=== PATIENT | female | born 1990 | race Two or more races ===

== ENCOUNTER 2019-01-21 15:07 | Emergency (ER) | payer OTHER ==
[2019-01-21 15:17] VITALS: BP 107/57; PULSE 88; TEMP 98; BMI 21.1
--- NOTE | 2019-01-21 15:24 | PDOC ---
History of Present Illness - General Chief Complaint: Bone Injury Stated Complaint: DISPLACED FX OF LT RING FINGER Time Seen by Provider: 01/21/19 15:22 History Source: Patient Exam Limitations: No Limitations Past History - Travel Traveled outside of the country in the last 30 days: No Close contact w/someone who was outside of country & ill: No - Past Medical History Allergies/Adverse Reactions: Allergies Allergy/AdvReac Type Severity Reaction Status Date / Time No Known Allergies Allergy Verified 01/21/19 15:17 Home Medications: Ambulatory Orders NK [No Known Home Medication] 01/21/19 COPD: No - Suicide/Smoking/Psychosocial Hx Smoking History: Never smoked Have you smoked in the past 12 months: No Information on smoking cessation initiated: No Hx Alcohol Use: No Drug/Substance Use Hx: No Review of Systems - Review of Systems Able to Perform ROS?: Yes Comments:: 01/21/19 15:30 CONSTITUTIONAL: Absent: fever, chills, diaphoresis, generalized weakness, malaise, loss of appetite HEENT: Absent: rhinorrhea, nasal congestion, throat pain, throat swelling, difficulty swallowing, mouth swelling, ear pain, eye pain, visual Changes CARDIOVASCULAR: Absent: chest pain, loss of consciousness, palpitations, irregular heart rate, peripheral edema RESPIRATORY: Absent: cough, shortness of breath, dyspnea with exertion, orthopnea, wheezing, stridor, hemoptysis GASTROINTESTINAL: Absent: abdominal pain, abdominal distension, nausea, vomiting, diarrhea, constipation, melena, hematochezia GENITOURINARY: Absent: dysuria, frequency, urgency, hesitancy, hematuria, flank pain, genital pain MUSCULOSKELETAL: Absent: myalgia, arthralgia, joint swelling SKIN: Absent: rash, itching, pallor HEMATOLOGIC/IMMUNOLOGIC: Absent: easy bleeding, easy bruising, lymphadenopathy, frequent infections ENDOCRINE: Absent: unexplained weight gain, unexplained weight loss, heat intolerance, cold intolerance NEUROLOGIC: Absent: headache, focal weakness or paresthesias, dizziness, unsteady gait, seizure, mental status changes, bladder or bowel incontinence PSYCHIATRIC: Absent: anxiety, depression, suicidal or homicidal ideation, hallucinations. Is the patient limited [place] Citizen proficient: No *Physical Exam - Vital Signs Last Vital Signs Temp Pulse Resp BP Pulse Ox 98 F 88 18 107/57 L 99 01/21/19 15:14 01/21/19 15:14 01/21/19 15:14 01/21/19 15:14 01/21/19 15:14 *DC/Admit/Observation/Transfer Diagnosis at time of Disposition: Finger fracture, left Qualifiers: Encounter type: initial encounter Finger: ring finger Fracture type: closed Phalanx: middle Fracture alignment: displaced Qualified Code(s): S62.625A - Displaced fracture of middle phalanx of left ring finger, initial encounter for closed fracture - Discharge Dispostion Disposition: HOME Condition at time of disposition: Stable Decision to Admit order: No - Referrals Referrals: Reji Escamilla MD [Staff Physician] - Kiko Abdul MD [Staff Physician] - - Patient Instructions Printed Discharge Instructions: DI for Finger Fracture Additional Instructions: You broke your left 4th finger today It was displaced and reduced Wear the finger splint until you can see Dr. Escamilla; call his office first thing on Thursday Do not get the splint wet Take Motrin 600mg every 6 hours as needed for pain Take Percocet as needed for break through pain one every [address] drink or drive after taking this medication as it may make you drowsy Return to the ER for increased pain, loss of sensation to the finger, or if you have any changes in your symptoms - Post Discharge Activity Forms/Work/School Notes: Back to Work
== END 2019-01-21 17:41 | disposition home or self-care (01) ==
LOC: JERFT 15:07
PROC: 0PSVXZZ Reposition Left Finger Phalanx, External Approach (ICD-10-PCS; principal; 2019-01-21)
DX: S62.625A Displaced fracture of middle phalanx of left ring finger, initial encounter for closed fracture (principal); X58.XXXA Exposure to other specified factors, initial encounter; Y93.89 Activity, other specified; Y92.89 Other specified places as the place of occurrence of the external cause; Y99.8 Other external cause status
CPT/HCPCS: 73130-TC-LT-FY; 99281-25

== ENCOUNTER 2019-02-02 04:52 | Day surgery (SDC) | payer OTHER ==
[2019-01-27 14:00] VITALS: BMI 20.9
[2019-02-02] MEDS ORDERED: LIDOCAINE HCL 1%, 10 MG/ML (20ML VIAL) ONE (08:09)
[2019-02-02] MEDS ORDERED: BUPIVACAINE HCL/PF 0.5% (5MG/ML) 10 ML VIAL ONE (08:10)
[2019-02-02] MEDS ORDERED: PROPOFOL 20 ML ONE ×2 (08:48→08:59)
[2019-02-02] MEDS ORDERED: ceFAZolin SODIUM 1 GM VIAL ONE (08:48)
[2019-02-02] MEDS ORDERED: SODIUM CHLORIDE 0.9% P/F 10 ML VIAL IJ ONE (08:48)
--- NOTE | 2019-02-02 08:53 | HP ---
Satellite [facility] - Chief Complaint Chief Complaint: left ring finger middle phalanx fracture History of Present Illness: left ring finger middle phalanx fracture History Source: Patient Limitations to Obtaining History: No Limitations - Past Medical History Allergies/Adverse Reactions: Allergies Allergy/AdvReac Type Severity Reaction Status Date / Time No Known Allergies Allergy Verified 02/02/19 08:10 ...LMP: 01/19/19 - Current Medications Current Medications: Home Medications Medication Instructions Recorded Ibuprofen 600 mg PO Q6H #30 tablet 01/21/19 Satellite Physical Exam - Physical Examination Vital Signs: Vital Signs Period Temp Pulse Resp BP Sys/Villa Pulse Ox Last 24 Hr 97.5 F 81 18 107/68 100 General Appearance: Well Nourished ENT: Clear Lung: Clear to auscultation Heart: Regular rate & rhythm Breasts: Soft Abdomen: Soft Extremities: No edema Satellite Impression/Plan - Impression/Plan Impression: left ring finger middle phalanx fracture Operative Procedure: ORIF left ring finger middle phalanx Date to be Performed: 02/02/19
[2019-02-02] MEDS ORDERED: MIDAZOLAM HCL 2 MG/2 ML SINGLE DOSE VIAL ONE (09:00)
[2019-02-02] MEDS ORDERED: LIDOCAINE HCL/PF 2% SDV 5ML VIAL ONE (09:22)
[2019-02-02] MEDS ORDERED: ceFAZolin 2 GRAM PREMIX BAG IVPB ONE (09:45)
[2019-02-02] MEDS ORDERED: LIDOCAINE HCL 1%, 10 MG/ML (20ML VIAL) INF ONE (10:03)
[2019-02-02] MEDS ORDERED: BUPIVACAINE HCL/PF (5 MG/ML) 30 ML VIAL IJ ONE ×3 (10:03→10:18)
[2019-02-02] MEDS ORDERED: LIDOCAINE HCL 1%, 10 MG/ML (50 mL VIAL) INF ONE (10:03)
[2019-02-02] MEDS ORDERED: KETOROLAC TROMETHAMINE 30 MG/1 ML VIAL ONE (10:15)
[2019-02-02] MEDS ORDERED: LIDOCAINE HCL 1%, 10 MG/ML (50 mL VIAL) IJ ONE (10:18)
--- NOTE | 2019-02-02 10:31 | OP ---
Operative Note - Note: Operative Date: 02/02/19 Pre-Operative Diagnosis: left ring finger middle phalanx fracture Operation: left ring finger middle phalanx ORIF Implants: .045" K-wire x 1 Surgeon: Kiko Abdul Anesthesiologist/BESSEMER REGULATOR: Prudencio De Jesus Anesthesia: General, Local Estimated Blood Loss (mls): 0 Drains, Volume Out (mls): 0 Blood Volume Replaced (mls): 0 Fluid Volume Replaced (mls): 700 Operative Report Dictated: Yes
[2019-02-02] MEDS ORDERED: ONDANSETRON 4 MG/2 ML VIAL IVPUSH PRN (10:34)
[2019-02-02] MEDS ORDERED: oxyCODONE HCL 5 MG TABLET PO PRN (10:34)
[2019-02-02] MEDS ORDERED: LACTATED RINGERS SOLUTION 1,000 ML IV SCH (10:45)
--- NOTE | 2019-02-02 11:46 | OP ---
DATE OF OPERATION: 02/02/2019 PREOPERATIVE DIAGNOSIS: Comminuted displaced angulated fracture of the left ring finger middle phalanx. POSTOPERATIVE DIAGNOSIS: Comminuted displaced angulated fracture of the left ring finger middle phalanx. PROCEDURE: Open reduction internal fixation of left ring finger middle phalanx. SURGEON: Kiko Abdul MD ASSISTANTS: None. TECHNICAL PUBLICATIONS MANAGER: Prudencio De Jesus CRNA ANESTHESIA: LMA anesthesia with local injection of 10 mL 0.5% Marcaine and 1% lidocaine mixed. SPECIMENS: None. DRAINS: None. COMPLICATIONS: None. BLOOD LOSS: None. BLOOD GIVEN: None. IMPLANTS: A 1.045-inch K-wire. FLUID REPLACEMENT: PlasmaLyte, 700 mL. INDICATIONS: This patient is a 28-year-old female with a preoperative diagnosis of a comminuted displaced angulated left ring finger middle phalanx fracture. After understanding the potential risks, complications, alternatives, and benefits of surgery versus nonsurgical treatment, the patient elected to undergo this procedure. Patient understands she may have temporary longstanding or permanent stiffness of the left hand especially the right finger, especially the ring finger PIP joint. DESCRIPTION OF PROCEDURE: The patient was brought to the operating room. Peripheral IV placed. IV sedation given. IV Ancef, 1 g, was given. LMA anesthesia was induced. Patient was relaxed, and the left upper extremity was prepped and draped in sterile fashion. Provisional x-rays were taken with a mini-C-arm fluoroscopy documenting significant displacement which had multiple attempts at reduction. There must be some soft tissue interposed, likely the periosteum, as I was not able to reduce it. Next, the left upper extremity was elevated, exsanguinated with an Esmarch bandage, and tourniquet inflated to 250 mmHg. I made a mid-axial incision on the radial aspect of the middle phalanx of the left ring finger with a No. 15 scalpel blade. Subcutaneous hemostasis was achieved with a bipolar cautery. Dissection was done down to the periosteum. This was incised with a fresh No. 15 scalpel blade and brought out from an interposed position between the fracture fragments. The area was copiously irrigated and washed out. Small self-retaining retractors were placed for better visualization. I did a closed reduction, held it in place with small alligator forceps. X-rays were taken in the AP, lateral, and multiple oblique planes documenting excellent length, angulation, and position of the fracture fragments. It did moreno in more stability and to indicate appropriate position. I then tried to do crossing K-wires, and the bone was so small, it was not possible. So, I used a retrograde technique and put in one 0.045 K-wire from proximal to distal for the distal fragment and distal phalanx, reduced it again, compressed it, and then drove in proximally across the proximal fracture fragment and into the proximal phalanx. Overall, the reduction was anatomic with excellence in the AP, lateral, and multiple oblique planes. The single 0.045 K-wire filled the entire medullary canal, and there was no other room for any other implants. Therefore, the pin was bent, cut, and pin cap applied. The area was irrigated and washed out. Then, 4-0 undyed Vicryl was used to close the deep dermal layer, horizontal mattress sutures were used to close the skin using 4-0 nylon. The area was then washed and dried and covered with Xeroform, 4x4 gauze, Webril, fluffs between the fingers, and a 4-inch Ortho-Glass splint was made with the fingers in a more functional position, wrapped with Coban. The tourniquet was taken down after a total tourniquet time of 48 minutes. There were no complications during the case. The patient tolerated the procedure quite well and was brought to the ambulatory recovery room in stable condition. Partha [id number]
[2019-02-02 12:37] VITALS: TEMP 97.4
[2019-02-02 12:51] VITALS: BP 100/72; PULSE 90
== END 2019-02-02 12:55 | disposition home or self-care (01) ==
LOC: JASU-SURG 04:52
PROVIDERS: ATTEND Orthopaedic Surgery
PROC: 0PSV04Z Reposition Left Finger Phalanx with Internal Fixation Device, Open Approach (ICD-10-PCS; principal; 2019-02-02 09:00)
DX: S62.625A Displaced fracture of middle phalanx of left ring finger, initial encounter for closed fracture (principal); X58.XXXA Exposure to other specified factors, initial encounter; Y93.9 Activity, unspecified; Y92.9 Unspecified place or not applicable; Y99.9 Unspecified external cause status
CPT/HCPCS: 76000-TC-FY; 84703; 94760